=== PATIENT | male | born 1950 | race African-American/Black ===

== ENCOUNTER 2020-07-27 18:43 | Outpatient (CLI) | payer OTHER ==
--- NOTE | 2020-07-28 08:35 | XRAY Report ---
PROCEDURE: Shoulder 3 View LT INDICATIONS: L SHOULDER PX TECHNIQUE: 4 views of the shoulder were acquired. COMPARISON: None. FINDINGS: Bones: No fractures or dislocations. No suspicious bony lesions. Visualized ribs appear intact. Soft tissues: No suspicious soft tissue calcifications. IMPRESSION: Moderate AC joint osteoarthritis, elevation of the humeral head at the glenoid fossa to the degree that there is near apposition of the humerus against the undersurface of the acromion. Ful l-thickness rotator cuff tear is suspected. Probable chronic impingement. No acute fracture found. Reviewed by: Israel Sanford MD on 07/28/2020 8:34 AM PDT Approved by: Israel Sanford MD on 07/28/2020 8:34 AM PDT Station ID: [id number]
== END 2020-07-27 23:59 | disposition home or self-care (01) ==
LOC: DI.N 18:43
PROVIDERS: ATTEND Orthopaedic Surgery
DX: M25.512 Pain in left shoulder (principal); M19.012 Primary osteoarthritis, left shoulder

== ENCOUNTER 2020-08-30 09:45 | Outpatient (CLI) | payer OTHER ==
--- NOTE | 2020-08-30 14:09 | MRI Report ---
PROCEDURE: Shoulder LT W/O INDICATIONS: PAIN IN LT SHOULDER TECHNIQUE: Noncontrast oblique coronal T2 fast spin echo with fat saturation, oblique sagittal T1 spin echo and T2 fast spin echo with fat saturation, axial T1 spin echo and T2 fast spin echo with fat saturation t hrough the shoulder. COMPARISON: Plain films of the left shoulder dated 07/27/2020 FINDINGS: Image quality: Excellent. Rotator cuff: There is full-thickness tearing of the entire supraspinatus and infraspinatus tendons, which demonstrate medial retraction and atrophy. Full-thickness tearing of the mid/superior aspect of the subscapularis tendon which demonstrates medial retraction and and muscle atrophy. Teres minor is intact. Bones and bursae: No bone marrow contusions or fractures. Superior subluxation of the humeral head is present. Moderate acromioclavicular joint degeneration. The acromion demonstrates conventional an atomy, without an os acromiale. No pathologic subacromial/subdeltoid bursal fluid is present. Capsule and soft tissues: No humeral joint effusion. There is linear high T2 signal intensity jewell ing the posterior superior glenoid labrum. Full-thickness tearing of the biceps tendon. The rotator i nterval appears normal, without fibrosis. The coracohumeral ligament is normal in thickness. IMPRESSION: 1. Full-thickness tearing of most of the subscapularis tendon, as well as the entire supraspinatus an d infraspinatus tendons, which demonstrate medial retraction and atrophy. 2. Acromioclavicular joint osteoarthritis. 3. Biceps tendon tear. 4. Glenoid labral tear. Reviewed by: Javier Hernandez MD on 08/30/2020 2:08 PM PDT Approved by: Javier Hernandez MD on 08/30/2020 2:08 PM PDT Station ID: [id number]
== END 2020-08-30 09:46 | disposition home or self-care (01) ==
LOC: DI 09:45
PROVIDERS: ATTEND Orthopaedic Surgery
DX: M75.122 Complete rotator cuff tear or rupture of left shoulder, not specified as traumatic (principal); M19.012 Primary osteoarthritis, left shoulder; S46.822A Laceration of other muscles, fascia and tendons at shoulder and upper arm level, left arm, initial encounter; M75.82 Other shoulder lesions, left shoulder

== ENCOUNTER 2020-11-28 13:37 | Outpatient (CLI) | payer MEDICARE, OTHER | END 2020-11-28 13:38 | disposition home or self-care (01) | LOC: COV 13:37 | PROVIDERS: ATTEND Family Medicine | DX: Z01.812 Encounter for preprocedural laboratory examination (principal); Z20.822 Contact with and (suspected) exposure to COVID-19 ==